=== PATIENT | female | born 1985 | race Caucasian/White ===

== ENCOUNTER 2018-02-20 09:34 | Emergency (ER) | payer SELFPAY ==
[2018-02-20] MEDS ORDERED: Ibuprofen 800 MG TAB ONE (09:51)
[2018-02-20 10:03] LABS: Bilirubin Negative (Negative); Blood, Urine Negative (Negative); Clarity CLEAR (Clear); Glucose, Urine (Dipstick) Negative (Negative); Leukocyte Negative (Negative); Nitrite Negative (Negative); Protein, Urine (Dipstick) Negative (Neg-Trace); Specific Gravity, Urine 1.007 (1.002-1.036); Urobilinogen 0.2 mg/dL (0.2-1.0); pH, Urine 7.5 (5.0-9.0)
[2018-02-20 10:11] LABS: Pregnancy Test - Urine (BHCG) Negative (Negative); Pregu Control Background? CLEAR/WHITE (CLR/WHITE); Pregu Control Bar Appear? YES (CONTROL BAR); Specific Gravity 1.007 (1.002-1.036)
--- NOTE | 2018-02-20 11:49 | CT ---
ABDOMEN AND PELVIS CT NONCONTRAST: Date: 02/20/18 Reference made to 10/26/08 CT exam. INDICATION: Left flank pain. FINDINGS: There is a large left adnexal hypodense mass, incompletely assessed by CT imaging, measuring approxim ately 5.0 cm in diameter. There is no obstructive uropathy, bilaterally. Numerous, scattered granulom atous calcifications are present. Visualized lung bases are clear. No acute osseous pathology. Evalua tion otherwise limited by noncontrast technique. IMPRESSION: 1. No urolithiasis or obstructive uropathy. 2. Large left adnexal mass. Recommend dedicated pelvic ultrasound to further evaluated. POS: [facility]
--- NOTE | 2018-02-20 12:11 | ULT ---
ULTRASOUND PELVIC WITH DOPPLER: Date: 02/20/18 HISTORY: Left side adnexal mass on recent CT exam. COMPARISON: CT dated 02/20/18. CT exam from 2008. FINDINGS: Real-time Amaya scale with color flow and spectral analysis of the pelvis performed via the transabdom inal approach only. The uterus measures 8.8 x 4.1 x 4.7 cm. Endometrial thickness is 9.0 mm. Right ovary measures 2.7 x 2.6 x 2.2 cm. Left ovary measures 4.6 x 4.3 x 4.5 cm. In the left ovary, t here is a 4.6 x 3.8 x 4.0 cm cystic mass with multiple thin septations which are less than 3.0 mm. IMPRESSION: Cystic mass left ovary with multiple thin septations. This suggests a neoplasm. Given the thin septat ions, this may be a benign neoplastic entity. Surgical consultation recommended. POS: [facility]
== END 2018-02-20 12:49 | disposition home or self-care (01) ==
LOC: ERS 09:34
DX: N83.202 Unspecified ovarian cyst, left side (principal); F17.210 Nicotine dependence, cigarettes, uncomplicated
CPT/HCPCS: 74176; 76856; 81003; 81025; 93976

== ENCOUNTER 2018-02-27 20:01 | Emergency (ER) | payer SELFPAY ==
[2018-02-27] MEDS ORDERED: Ketorolac Tromethamine 30 MG/ML VIAL ONE (20:31)
--- NOTE | 2018-02-27 20:51 | RAD ---
RADIOGRAPH LEFT KNEE FOUR VIEWS: HISTORY: A 32-year-old female with traumatic left knee pain after twisting injury. FINDINGS: No joint effusion. Joint spaces are maintained without erosions or osteophytes. No fracture, disloc ation, or any other osseous abnormality. IMPRESSION: negative. POS: [facility]
== END 2018-02-27 21:01 | disposition home or self-care (01) ==
LOC: ERS 20:01
DX: M25.562 Pain in left knee (principal); F17.210 Nicotine dependence, cigarettes, uncomplicated
CPT/HCPCS: 96372; J1885

== ENCOUNTER 2018-04-05 13:05 | Emergency (ER) | payer MEDICAID ==
[2018-04-05 13:42] LABS: #Basophils 0.1 thou/uL (0.0-0.2); #Eosinphils 0.2 thou/uL (0.0-0.7); #Lymphocytes 2.4 thou/uL (1.20-3.40); #Monocytes 0.6 thou/uL (0.11-0.59); #Neutrophils 9.8 thou/uL (1.40-6.50); %Basophils 0.7 % (0.0-1.0); %Eosinophils 1.2 % (0.0-10.0); %Lymphocytes 18.3 % (21.0-51.0); %Monocytes 4.8 % (0.0-10.0); %Neutrophils 75.1 % (42.0-75.0); Hemoglobin 14.9 g/dL (12.0-16.0); Mean Corpuscular Hemoglobin 33.8 pg (27.0-31.0); Mean Corpuscular Volume 99.5 fL (78.0-98.0); Mean Platelet Volume 8.5 fL (7.4-10.4); Platelet Count 238 thou/uL (130-400); RBC Distribution Width 11.3 % (11.5-14.5); Red Blood Cell (RBC) Count 4.39 mill/uL (4.20-5.40)
[2018-04-05 14:07] LABS: Bilirubin Negative (Negative); Blood, Urine Moderate (Negative); Clarity CLEAR (Clear); Glucose, Urine (Dipstick) Negative (Negative); Leukocyte Negative (Negative); Nitrite Negative (Negative); Protein, Urine (Dipstick) Negative (Neg-Trace); Urobilinogen 0.2 mg/dL (0.2-1.0)
[2018-04-05 14:12] LABS: Bacteria/HPF None Seen HPF (None Seen); Hyaline Casts/LPF 0-3 HYALINE CAST LPF (0-3 Hyaline); Squamous Epithelial 0-3 HPF (0-3); WBC/HPF None Seen HPF (0-3)
--- NOTE | 2018-04-05 15:31 | ULT ---
PELVIC ULTRASOUND: Date: 04/05/18 HISTORY: Patient is reportedly and has bleeding. FINDINGS: Real-time imaging of the pelvis was obtained transabdominally, as well as with an endovaginal probe. The uterus measures 7.7 cm in length. The endometrium is in the 6-7 mm range. No intrauterine gestati onal sac is identified. The right ovary is normal in size and appearance. The left ovary is not visualized. DOPPLER EVALUATION WITH SPECTRAL ANALYSIS: Normal flow is shown to the right ovary. IMPRESSION: 1. Nonvisualization of the left ovary. 2. No evidence of an intrauterine . This does not exclude the possibility of an early intra uterine or ectopic. No free fluid is seen, or other findings. POS: [facility]
== END 2018-04-05 15:28 | disposition home or self-care (01) ==
LOC: ERS 13:05
DX: O20.9 Hemorrhage in early pregnancy, unspecified (principal); O99.331 Smoking (tobacco) complicating pregnancy, first trimester; F17.210 Nicotine dependence, cigarettes, uncomplicated; Z3A.01 Less than 8 weeks gestation of pregnancy
CPT/HCPCS: 36415; 76856; 81003; 81015; 84702; 85025; 86850; 86900; 86901

== ENCOUNTER 2018-09-22 00:19 | Emergency (ER) | payer OTHER, SELFPAY | END 2018-09-22 00:50 | disposition home or self-care (01) | LOC: ERS 00:19 | DX: Z00.00 Encounter for general adult medical examination without abnormal findings (principal); F17.210 Nicotine dependence, cigarettes, uncomplicated | CPT/HCPCS: 99281 ==

== ENCOUNTER 2019-05-23 08:57 | Emergency (ER) | payer OTHER, SELFPAY ==
--- NOTE | 2019-05-23 09:50 | RAD ---
EXAM: 3 views of the left ankle HISTORY: Ankle pain COMPARISON: None FINDINGS: 3 views of the left ankle shows no evidence of acute fracture or dislocation. Mild lateral soft tissue swelling is seen. No degenerative changes are present. IMPRESSION: No evidence of acute osseous abnormality.
== END 2019-05-23 10:21 | disposition home or self-care (01) ==
LOC: ERS 08:57 → EEVIPCON 08:57 → ERS 10:21
DX: S93.402A Sprain of unspecified ligament of left ankle, initial encounter (principal); E87.6 Hypokalemia; X50.9XXA Other and unspecified overexertion or strenuous movements or postures, initial encounter

== ENCOUNTER 2021-06-30 19:50 | Observation (INO) | payer OTHER ==
[2021-06-30 21:14] LABS: Bilirubin Negative (Negative); Blood, Urine Trace (Negative); Clarity Clear (Clear); Glucose, Urine (Dipstick) Normal (Negative); Ketone, Urine Negative (Negative); Leukocyte 250 Leu/uL (Negative); Nitrite Negative (Negative); Protein, Urine (Dipstick) Negative (Neg-Trace); RBC/HPF 0-3 HPF (0-3); Specific Gravity, Urine 1.018 (1.002-1.036); Squamous Epithelial 0-3 HPF (0-3); Urobilinogen 3 mg/dL (Less than 2); pH, Urine 6.5 (5.0-9.0)
[2021-06-30] MEDS ORDERED: Morphine 4 MG/ML VIAL ONE ×2 (21:16→23:34)
[2021-06-30 21:24] LABS: Bacteria/HPF None Seen HPF (None Seen)
[2021-06-30 22:26] LABS: Pregnancy Test - Urine (BHCG) Negative (Negative); Pregu Control Background? CLEAR/WHITE (CLR/WHITE); Pregu Control Bar Appear? YES (CONTROL BAR); Specific Gravity 1.018 (1.002-1.036)
[2021-07-01] MEDS ORDERED: Morphine 4 MG/ML VIAL SLOW IVP PRN (01:07)
[2021-07-01] MEDS ORDERED: Lactated Ringer's 1,000 ML IV SCH ×2 (01:15→08:30)
[2021-07-01] MEDS ORDERED: Ondansetron PF 4 MG/2 ML Vial IVP PRN (01:15)
[2021-07-01] MEDS ORDERED: Acetaminophen 325 MG TAB PO PRN (01:15)
[2021-07-01] MEDS ORDERED: Ondansetron ODT 4 MG TAB SL PRN (01:15)
[2021-07-01] MEDS ORDERED: Piperacillin/Tazobactam 3.375 GM in Sodium Chloride 0.9% 100 ML IVPB SCH ×3 (01:15→09:00)
[2021-07-01] MEDS ORDERED: Piperacillin/Tazobactam 3.375 GM VIAL ONE ×2 (01:50→09:39)
[2021-07-01 02:47] LABS: SARS-CoV-2 NAA Rapid Test Not Detected (NotDetected)
[2021-07-01] MEDS ORDERED: Ketorolac Tromethamine 30 MG/ML VIAL IVP SCH (08:30)
[2021-07-01] MEDS ORDERED: Scopolamine 1.5 mg/72 hour Patch TOP SCH (08:30)
[2021-07-01] MEDS ORDERED: Ketorolac Tromethamine 30 MG/ML VIAL ONE ×2 (08:49→08:53)
[2021-07-01] MEDS ORDERED: Sodium Chloride 0.9% 100 ML ONE (09:39)
[2021-07-01] MEDS ORDERED: Xylocaine 1% w/ Epi 1:100K 10 ML VIAL ONE (10:25)
[2021-07-01] MEDS ORDERED: Bupivacaine PF 0.5% 30 ML VIAL ONE (10:25)
[2021-07-01] MEDS ORDERED: Fentanyl 100 MCG/2 ML VIAL ONE (10:53)
[2021-07-01] MEDS ORDERED: Glycopyrrolate 0.2 MG/ML 5 ML SYRINGE ONE (10:58)
[2021-07-01] MEDS ORDERED: Rocuronium Bromide 10 MG/ML (10ML VIAL) ONE (10:58)
[2021-07-01] MEDS ORDERED: Lidocaine 1% PF 5 ML VIAL ONE (10:58)
[2021-07-01] MEDS ORDERED: PROPOFOL 200 MG/20 ML VIAL ONE (10:58)
[2021-07-01] MEDS ORDERED: SUGAMMADEX SODIUM 200 MG/2 ML VIAL ONE (11:34)
[2021-07-01] MEDS ORDERED: Midazolam HCl 2 mg/2 ml Vial ONE (11:39)
[2021-07-01] MEDS ORDERED: Ketorolac Tromethamine 30 MG/ML VIAL IVP PRN (15:00)
== END 2021-07-01 13:15 | disposition home or self-care (01) ==
LOC: ERS 19:50 → ERHOLD 07-01 00:59 → SURG B 07-01 11:56
PROVIDERS: ADMIT Specialist; ATTEND Specialist
PROC: 0DTJ4ZZ Resection of Appendix, Percutaneous Endoscopic Approach (ICD-10-PCS; principal; 2021-07-01)
DX: K35.80 Unspecified acute appendicitis (principal); F17.290 Nicotine dependence, other tobacco product, uncomplicated; Z20.822 Contact with and (suspected) exposure to COVID-19
CPT/HCPCS: 74177; 81003; 81015; 81025; 87480; 87491; 87510; 87591; 87660; 88304; A4649; G0378; J1885; J2250; J2270; J2543; J2704; J3010; J3490; J7120; S0020; U0002

== ENCOUNTER 2023-02-13 11:38 | Emergency (ER) | payer OTHER ==
[~2023-02-13 11:38] MED LIST: Iopamidol-370 76% 500 ML MDV (1 ML CHARGE) ONE
[2023-02-13 11:58] LABS: #Eosinphils 0.1 thou/uL (0.0-0.7); #Monocytes 0.4 thou/uL (0.11-0.59); #Neutrophils 4.7 thou/uL (1.40-6.50); %Basophils 0.6 % (0.0-1.0); %Eosinophils 1.6 % (0.0-10.0); %Lymphocytes 21.2 % (21.0-51.0); %Neutrophils 70.3 % (42.0-75.0); Hematocrit 36.8 % (36.0-47.0); Hemoglobin 12.4 g/dL (12.0-16.0); Mean Corpuscular HGB CONC 33.7 g/dL (32.0-36.0); Mean Corpuscular Hemoglobin 31.7 pg (27.0-31.0); Mean Corpuscular Volume 94.1 fl (78.0-98.0); Mean Platelet Volume 10.2 fL (7.4-10.4); Platelet Count 217 10x3/uL (130-400); RBC Distribution Width 12.2 % (11.5-14.5); Red Blood Cell (RBC) Count 3.91 mill/uL (4.20-5.40); White Blood Cell (WBC) Count 6.7 10x3/uL (4.8-10.8)
[2023-02-13 12:30] LABS: ALT (SGPT) 19 U/L (8-55); AST (SGOT) 26 U/L (5-34); Albumin 4.3 g/dL (3.5-5.0); Alkaline Phosphatase 80 U/L (40-110); Anion Gap 12 mmol/L (10-20); Bilirubin, Total 0.8 mg/dL (0.2-1.2); Calc. Creatinine Clearance 0 mL/min (70-130); Calcium 9.5 mg/dL (7.8-10.44); Carbon Dioxide 27 mmol/L (22-29); Chloride 103 mmol/L (98-107); Estimated GFR 93; Globulin 2.9 g/dL (2.4-3.5); Glucose 91 mg/dL (70-105); Potassium 4.1 mmol/L (3.5-5.1); Protein, Total 7.2 g/dL (6.0-8.3); Sodium 138 mmol/L (136-145)
[2023-02-13 12:46] LABS: BUN (Urea Nitrogen) 11 mg/dL (7.0-18.7)
[2023-02-13 12:48] LABS: Troponin I Less than 0.010 ng/mL (< 0.028)
[2023-02-13] MEDS ORDERED: Ondansetron PF 4 MG/2 ML Vial ONE (12:50)
[2023-02-13 13:31] LABS: Bacteria/HPF None Seen HPF (None Seen); Bilirubin Negative (Negative); Blood, Urine Negative (Negative); CAUTI Indications for Culture Dysuria,urgency,freq; Clarity Turbid (Clear); Glucose, Urine (Dipstick) Normal (Negative); Ketone, Urine Negative (Negative); Leukocyte Negative Leu/uL (Negative); Nitrite Negative (Negative); Pregnancy Test - Urine (BHCG) Negative (Negative); Pregu Control Background? CLEAR/WHITE (CLR/WHITE); Pregu Control Bar Appear? YES (CONTROL BAR); Protein, Urine (Dipstick) Negative (Neg-Trace); Specific Gravity 1.008 (1.002-1.036); Specific Gravity, Urine 1.008 (1.002-1.036); Squamous Epithelial 0-3 HPF (0-3); Urobilinogen Normal mg/dL (Less than 2); WBC/HPF 0-3 HPF (0-3); pH, Urine 7.5 (5.0-9.0)
[2023-02-13 13:32] LABS: Urine Culture Reflex No No
== END 2023-02-13 16:13 | disposition home or self-care (01) ==
LOC: ERS 11:38
DX: R42 Dizziness and giddiness (principal); Z87.891 Personal history of nicotine dependence
CPT/HCPCS: 70450; 70496; 70498; 80053; 81001; 81025; 83880; 84484; 85025; 93005; 96374; J2405; Q9967

== ENCOUNTER 2023-02-25 18:48 | Emergency (ER) | payer OTHER ==
[2023-02-25] MEDS ORDERED: Acetaminophen 500 MG TAB ONE (19:54)
== END 2023-02-25 19:58 | disposition home or self-care (01) ==
LOC: ERS 18:48
DX: U07.1 COVID-19 (principal)
CPT/HCPCS: 99283